=== PATIENT | female | born 1985 | race Caucasian/White ===

== ENCOUNTER 2018-05-15 11:46 | Emergency (ER) | payer MEDICAID ==
[~2018-05-15] VITALS: Ht 170.2 cm; Wt 61.2 kg
[2018-05-15 11:46] VITALS: BP 115/83
[2018-05-15] MEDS ORDERED: IBUPROFEN 600 MG TABLET PO ONE ×2 (12:30→12:31)
== END 2018-05-15 13:27 | disposition home or self-care (01) ==
LOC: ER 11:47
DX: S90.852A Superficial foreign body, left foot, initial encounter (principal); F41.9 Anxiety disorder, unspecified; Z88.0 Allergy status to penicillin; W45.8XXA Other foreign body or object entering through skin, initial encounter; Y93.89 Activity, other specified; Y92.89 Other specified places as the place of occurrence of the external cause; Y99.8 Other external cause status
CPT/HCPCS: 73630; 99284; A4606; Z7610

== ENCOUNTER 2018-08-23 04:47 | Emergency (ER) | payer MEDICAID, OTHER ==
[~2018-08-23] VITALS: Ht 170.2 cm; Wt 67.1 kg
--- NOTE | 2018-08-23 05:00 | NUR ---
pt bib self. comp of "having chest pain since 3am". radiates to r wrist. no sob noted. no acute distress at this time. ecg complete. blood drawn and sent for analysis. awaiting md petersen.
[2018-08-23] MEDS ORDERED: ACETAMINOPHEN ES 500 MG TABLET ONE (05:16)
[2018-08-23] MEDS ORDERED: ALPRAZOLAM 0.5 MG TABLET ONE (05:16)
[2018-08-23] MEDS ORDERED: NITROGLYCERIN PACKET 1 GM PACKET ONE (05:16)
[2018-08-23] MEDS ORDERED: ASPIRIN 81 MG TAB.CHEW ONE (05:17)
[2018-08-23 05:18] LABS: BASOPHILS # (AUTO) 0.1 /CMM (0.0-0.2); BASOPHILS % (AUTO) 1.7 % (0.0-2.0); EOSINOPHILS % (AUTO) 1.2 % (0.0-6.0); HEMATOCRIT 39 % (33-45); HEMOGLOBIN 13.1 g/dL (11.5-14.8); LYMPHOCYTES # (AUTO) 2.3 /CMM (0.8-4.8); LYMPHOCYTES % (AUTO) 31.4 % (20.0-44.0); MEAN CORPUSCULAR HGB CONC 33 g/dl (31.0-36.0); MEAN CORPUSCULAR VOLUME 84 fL (82-100); MONOCYTES # (AUTO) 0.9 /CMM (0.1-1.30); MONOCYTES % (AUTO) 12.1 % (2.0-12.0); NEUTROPHILS # (AUTO) 3.9 /CMM (1.8-8.9); NEUTROPHILS % (AUTO) 53.6 % (43.0-81.0); PLATELET COUNT (AUTO) 233 /CMM (150-450); RED BLOOD CELL COUNT(AUTO) 4.67 MIL/uL (4.0-5.2); WHITE BLOOD COUNT (AUTO) 7.3 K/uL (4.3-11.0)
--- NOTE | 2018-08-23 05:21 | NUR ---
radio at bedside.
[2018-08-23 05:30] LABS: CALCIUM, SERUM 8.7 mg/dL (8.5-10.1); CREATININE 0.7 mg/dL (0.6-1.3); POTASSIUM 3.4 mmol/L (3.5-5.1)
[2018-08-23] MEDS ORDERED: ASPIRIN 81 MG TAB.CHEW PO ONE (05:30)
[2018-08-23] MEDS ORDERED: NITROGLYCERIN 0.4 MG/TAB BOTTLE SL ONE (05:30)
[2018-08-23] MEDS ORDERED: NITROGLYCERIN PACKET 1 GM PACKET TD ONE (05:30)
[2018-08-23] MEDS ORDERED: ALPRAZOLAM 0.5 MG TABLET PO ONE (05:30)
[2018-08-23] MEDS ORDERED: ACETAMINOPHEN ES 500 MG TABLET PO ONE (05:30)
[2018-08-23 06:05] LABS: ALBUMIN 4.1 g/dL (3.4-5.0); BILIRUBIN,DIRECT 0.2 mg/dL (0.0-0.2); BILIRUBIN,TOTAL 0.8 mg/dL (0.2-1.0); TOTAL PROTEIN, SERUM 7.4 g/dL (6.4-8.2)
--- NOTE | 2018-08-23 07:25 | NUR ---
REPORT RECEIVED FROM DEMETRIA JIMENEZ FOR DESIRAE
[2018-08-23 11:03] VITALS: BP 126/72
--- NOTE | 2018-08-23 11:03 | NUR ---
IV removed. Catheter intact and site benign. Pressure and 4x4 applied to site. No bleeding noted.Patient discharged to home in stable condition. Written and verbal after care instructions given. Patient verbalizes understanding of instruction.
== END 2018-08-23 11:04 | disposition home or self-care (01) ==
LOC: ER 04:52
DX: F41.9 Anxiety disorder, unspecified (principal); R07.89 Other chest pain; G89.29 Other chronic pain; Z88.0 Allergy status to penicillin
CPT/HCPCS: 36415; 71045; 80048; 80076; 83880; 84484 ×2; 84703; 85025; 93005; 99284; A4606; Z7610